=== PATIENT | male | born 1980 | race Caucasian/White ===

== ENCOUNTER 2017-09-10 23:50 | Emergency (ER) | payer OTHER ==
[~2017-09-10] VITALS: Ht 182.9 cm; Wt 99.5 kg
[2017-09-10 23:59] VITALS: BP 149/95; PULSE 69; RESP 18; TEMP 98.1; O2SAT 97
[2017-09-11] MEDS ORDERED: SODIUM CHLOR 0.9% 1000 ML INJ 1,000 ML IV SCH (00:05)
[2017-09-11 00:09] VITALS: BP 149/95; PULSE 69; RESP 18; TEMP 98.1; O2SAT 97
--- NOTE | 2017-09-11 00:11 | PD ---
HPI Chief Complaint: Left flank pain Time Seen by Provider: 00:05 Travel History International Travel<30 days: No Contact w/Intl Traveler<30days: No Traveled to known affect area: No History of Present Illness HPI 36-year-old male patient with history of kidney stones, presents to the ER for 3 days history of left flank pains with radiation to the left groin area. He has been nauseous but denies any vomiting, fevers, or other symptoms. He has noticed some dark urine. Symptoms have worsened over the last day. Pain is currently a 7 out of 10. Patient has been using [id number] pain medications without significant improvement. Modifying Factors: None Associated Signs & Symptoms: Left flank pain Risk Factors: History of kidney stones PFSH Past Medical History Diminished Hearing: No Immune Disorder: Yes (psoriasis) Kidney Stones: Yes (X2) Integumentary: Yes (PSOROSIS) Social History Alcohol Use: Yes (SOCIALLY) Tobacco Use: No Substance Use: No Allergies-Medications (Allergen,Severity, Reaction): Coded Allergies: No Known Allergies (Verified Adverse Reaction, Unknown, 09/11/17) Reported Meds & Prescriptions Reported Meds & Active Scripts Active Zofran Odt (Ondansetron Odt) 4 Mg Tab 4 Mg SL Q6HR PRN Percocet (Oxycodone-Acetaminophen) 5-325 mg Tab 1-2 Tab PO Q6H PRN Aleve Arthritis (Naproxen Sodium) 220 Mg Tab 220 Mg PO BID Review of Systems Except as stated in HPI: all other systems reviewed are Neg Physical Exam Narrative GENERAL: Well-developed young male patient currently in mild to moderate distress. Awake and oriented 3. SKIN: Focused skin assessment warm/dry. HEAD: Atraumatic. Normocephalic. EYES: Pupils equal and round. No scleral icterus. No injection or drainage. ENT: No nasal bleeding or discharge. Mucous membranes pink and moist. NECK: Trachea midline. No JVD. Supple. CARDIOVASCULAR: Regular rate and rhythm. No murmur appreciated. RESPIRATORY: No accessory muscle use. Clear to auscultation. Breath sounds equal bilaterally. GASTROINTESTINAL: Abdomen soft, non-tender, nondistended. Hepatic and splenic margins not palpable. MUSCULOSKELETAL: No obvious deformities. No clubbing. No cyanosis. No edema. BACK: Mild left CVA tenderness. No rash. No point tenderness on palpation of the spine. NEUROLOGICAL: Awake and alert. No obvious cranial nerve deficits. Motor grossly within normal limits. Normal speech. PSYCHIATRIC: Appropriate mood and affect; insight and judgment normal. Data Data Last Documented VS Vital Signs Date Time Temp Pulse Resp B/P (MAP) Pulse Ox O2 Delivery O2 Flow Rate FiO2 09/11/17 00:43 62 18 143/78 (99) 97 Room Air 09/11/17 00:09 98.1 Orders Orders Complete Blood Count With Diff (09/11/17 00:05) Comprehensive Metabolic Panel (09/11/17 00:05) Lipase (09/11/17 00:05) Urinalysis - C+S If Indicated (09/11/17 00:05) Ct Abd/Pel W/O Iv Contrast (09/11/17 00:05) Iv Access Insert/Monitor (09/11/17 00:05) Ecg Monitoring (09/11/17 00:05) Oximetry (09/11/17 00:05) Ondansetron Inj (Zofran Inj) (09/11/17 00:15) Sodium Chlor 0.9% 1000 Ml Inj (Ns 1000 M (09/11/17 00:05) Sodium Chloride 0.9% Flush (Ns Flush) (09/11/17 00:15) Ketorolac Inj (Toradol Inj) (09/11/17 00:15) Labs Laboratory Tests Test 09/11/17 00:30 White Blood Count 8.0 TH/MM3 Red Blood Count 4.76 MIL/MM3 Hemoglobin 13.6 GM/DL Hematocrit 40.4 % Mean Corpuscular Volume 84.8 FL Mean Corpuscular Hemoglobin 28.5 PG Mean Corpuscular Hemoglobin Concent 33.6 % Red Cell Distribution Width 12.0 % Platelet Count 165 TH/MM3 Mean Platelet Volume 8.5 FL Neutrophils (%) (Auto) 74.1 % Lymphocytes (%) (Auto) 14.2 % Monocytes (%) (Auto) 10.0 % Eosinophils (%) (Auto) 0.8 % Basophils (%) (Auto) 0.9 % Neutrophils # (Auto) 5.9 TH/MM3 Lymphocytes # (Auto) 1.1 TH/MM3 Monocytes # (Auto) 0.8 TH/MM3 Eosinophils # (Auto) 0.1 TH/MM3 Basophils # (Auto) 0.1 TH/MM3 CBC Comment DIFF FINAL Differential Comment Urine Color YELLOW Urine Turbidity CLEAR Urine pH 5.5 Urine Specific [place] 1.034 Urine Protein TRACE mg/dL Urine Glucose (UA) NEG mg/dL Urine Ketones NEG mg/dL Urine Occult Blood LARGE Urine Nitrite NEG Urine Bilirubin NEG Urine Leukocyte Esterase NEG Urine RBC 25-49 /hpf Urine WBC 0-2 /hpf Urine Squamous Epithelial Cells 0-5 /hpf Urine Bacteria NONE /hpf Microscopic Urinalysis Comment CULT NOT INDICATED Blood Urea Nitrogen 25 MG/DL Creatinine 1.50 MG/DL Random Glucose 113 MG/DL Total Protein 7.2 GM/DL Albumin 4.2 GM/DL Calcium Level 8.9 MG/DL Alkaline Phosphatase 84 U/L Aspartate Amino Transf (AST/SGOT) 22 U/L Alanine Aminotransferase (ALT/SGPT) 37 U/L Total Bilirubin 0.6 MG/DL Sodium Level 141 MEQ/L Potassium Level 3.7 MEQ/L Chloride Level 106 MEQ/L Carbon Dioxide Level 26.9 MEQ/L Anion Gap 8 MEQ/L Estimat Glomerular Filtration Rate 54 ML/MIN Lipase 135 U/L [facility] Medical Decision Making Medical Screen Exam Complete: Yes Emergency Medical Condition: Yes Medical Record Reviewed: Yes Interpretation(s) Laboratory Tests Test 09/11/17 00:30 Neutrophils (%) (Auto) 74.1 % (16.0-70.0) Monocytes (%) (Auto) 10.0 % (0.0-8.0) Urine Occult Blood LARGE (NEG) Urine RBC 25-49 /hpf (0-3) Blood Urea Nitrogen 25 MG/DL (7-18) Creatinine 1.50 MG/DL (0.60-1.30) Random Glucose 113 MG/DL (74-106) Estimat Glomerular Filtration Rate 54 ML/MIN (>89) Differential Diagnosis Left flank pains: Renal colic versus UTI/pyelonephritis versus musculoskeletal Narrative Course UA is notable for hematuria. His BUN and creatinine is mildly elevated. CAT scan is showing a 5 mm stone in the proximal left ureter. At this point, I have discussed findings with patient and patient had been given Toradol, IV fluids, Zofran in the ER. He is feeling improved On reevaluation an hour later. At this point, my plan would be to release the patient with follow-up to urology. Return for any worsening in pain or new symptoms as needed. He will be given further symptomatic relief or pain and nausea. The plan was discussed with patient and he states understanding. Diagnosis Primary Impression: Renal colic on left side Referrals: Kevin Galeana MD Med/Other Pt SpecificInfo: Prescription(s) given Scripts Ondansetron Odt (Zofran Odt) 4 Mg Tab 4 MG SL Q6HR Y for Nausea/Vomiting, #10 TAB 0 Refills Prov: Pratibha Spain MD 09/11/17 Oxycodone-Acetaminophen (Percocet) 5-325 mg Tab 1-2 TAB PO Q6H Y for PAIN, #15 TAB 0 Refills Prov: Pratibha Spain MD 09/11/17 Naproxen Sodium (Aleve Arthritis) 220 Mg Tab 220 MG PO BID, #20 TAB Prov: Pratibha Spain MD 09/11/17 Disposition: 01 DISCHARGE HOME Condition: Stable Pratibha Spain MD Sep 11, 2017 00:11
[2017-09-11] MEDS ORDERED: KETOROLAC TROMETHAMINE 30 MG/ML (IVP) VIAL IVP ONE (00:15)
[2017-09-11] MEDS ORDERED: SODIUM CHLORIDE 0.9% FLUSH 10 ML FLUSH IV FLUSH PRN (00:15)
[2017-09-11] MEDS ORDERED: ONDANSETRON HCL 4 MG/2 ML VIAL IVP ONE (00:15)
[2017-09-11 00:43] VITALS: BP 143/78; PULSE 62; RESP 18; O2SAT 97
[2017-09-11 00:45] LABS: BILIRUBIN, URINE NEG (NEG); BLOOD, URINE LARGE (NEG); GLUCOSE,URINE NEG (NEG); KETONE, URINE NEG (NEG); NITRITE,URINE NEG (NEG); PH, URINE 5.5 (5.0-8.5); URINE LEUKOCYTE ESTERASE NEG (NEG)
[2017-09-11 00:47] LABS: AUTOMATED NEUTROPHIL # 5.9 TH/MM3 (1.8-7.7); BASOPHIL # 0.1 TH/MM3 (0-0.2); BASOPHIL % 0.9 % (0.0-2.0); EOSINOPHIL # 0.1 TH/MM3 (0-0.4); EOSINOPHIL % 0.8 % (0.0-4.0); HEMATOCRIT 40.4 % (39.0-51.0); HEMOGLOBIN 13.6 GM/DL (13.0-17.0); LYMPH % 14.2 % (9.0-44.0); LYMPHOCYTE # 1.1 TH/MM3 (1.0-4.8); MEAN CELL VOLUME 84.8 FL (80.0-100.0); MEAN CORPUSCULAR HEMOGLOBIN 28.5 PG (27.0-34.0); MEAN CORPUSCULAR HGB CONC 33.6 % (32.0-36.0); MEAN PLATELET VOLUME 8.5 FL (7.0-11.0); MONOCYTE # 0.8 TH/MM3 (0-0.9); NEUT % 74.1 % (16.0-70.0); PLATELET COUNT 165 TH/MM3 (150-450); RED BLOOD COUNT 4.76 MIL/MM3 (4.50-5.90)
[2017-09-11 00:54] LABS: URINE COLOR YELLOW (YELLW/STRAW); WBC, URINE 0-2 /hpf (0-5)
--- NOTE | 2017-09-11 00:54 | RADRPT ---
EXAM DATE/TIME: 09/11/2017 00:13 [place] COMPARISON: No previous studies available for comparison. INDICATIONS : Left flank pain. ORAL CONTRAST: No oral contrast ingested. RADIATION DOSE: 22.68 CTDIvol (mGy) MEDICAL HISTORY : None SURGICAL HISTORY : None. ENCOUNTER: Initial ACUITY: 2 days PAIN SCALE: 7/10 LOCATION: Left flank TECHNIQUE: Volumetric scanning of the abdomen and pelvis was performed. Using automated exposure control and ad justment of the mA and/or kV according to patient size, radiation dose was kept as low as reasonably achievable to obtain optimal diagnostic quality images. DICOM format image data is available electro nically for review and comparison. FINDINGS: LOWER LUNGS: The visualized lower lungs are clear. LIVER: Homogeneous density without lesion. There is no dilation of the biliary tree. No calcified gallston es. SPLEEN: Normal size without lesion. PANCREAS: Within normal limits. KIDNEYS: 5 mm calcified calculus in the proximal left ureter with associated mild left-sided hydronephrosis. T here are 3 additional 2-4 mm calyceal calculi on the left. The there is a 7 mm calcified calyceal gwen culus in the right inferior pole. Right kidney is otherwise unremarkable. ADRENAL GLANDS: Within normal limits. VASCULAR: There is no aortic aneurysm. BOWEL/MESENTERY: The stomach, small bowel, and colon demonstrate no acute abnormality. There is no free intraperitone al air or fluid. ABDOMINAL WALL: Within normal limits. RETROPERITONEUM: There is no lymphadenopathy. BLADDER: No wall thickening or mass. Pelvic calcifications are likely phleboliths. REPRODUCTIVE: Within normal limits. INGUINAL: There is no lymphadenopathy or hernia. MUSCULOSKELETAL: Within normal limits for patient age. CONCLUSION: 1. 5 mm proximal left ureteral calculus with mild left-sided hydronephrosis. 2. Three additional to 4 mm left calyceal calculi 3. Single nonobstructing 7 mm calcified calculus in the right inferior pole. Yosvany Sorto MD on September 11, 2017 at 0:50 Board Certified Radiologist. This report was verified electronically.
[2017-09-11 00:55] LABS: SQUAMOUS EPITHELIAL CELL URINE 0-5 /hpf (0-5)
[2017-09-11 01:00] LABS: CHLORIDE 106 MEQ/L (98-107); SODIUM (NA) 141 MEQ/L (136-145)
[2017-09-11 01:03] LABS: CALCIUM 8.9 MG/DL (8.5-10.1)
[2017-09-11] MEDS ORDERED: ALEV220T14 PO (01:03)
[2017-09-11] MEDS ORDERED: PERC5TAB12 PO (01:03)
[2017-09-11 01:04] LABS: ALBUMIN 4.2 GM/DL (3.4-5.0); BICARBONATE 26.9 MEQ/L (21.0-32.0); BLOOD UREA NITROGEN 25 MG/DL (7-18); GLUCOSE,RANDOM 113 MG/DL (74-106)
[2017-09-11] MEDS ORDERED: ZOFR4TAB3 SL (01:04)
[2017-09-11 01:06] LABS: ALT (GPT) 37 U/L (12-78)
[2017-09-11 01:07] LABS: AST (GOT) 22 U/L (15-37); GLOMERULAR FILTRATION RATE 54 ML/MIN (>89)
[2017-09-11 01:08] LABS: TOTAL BILIRUBIN ADULT 0.6 MG/DL (0.2-1.0); TOTAL PROTEIN 7.2 GM/DL (6.4-8.2)
[2017-09-11 01:09] LABS: ALKALINE PHOSPHATASE 84 U/L (45-117)
[2017-09-11 01:16] VITALS: BP 125/67
[2017-09-11 01:24] VITALS: RESP 18
== END 2017-09-11 01:30 | disposition home or self-care (01) ==
LOC: PHED 23:50
DX: N13.30 Unspecified hydronephrosis (principal); N20.2 Calculus of kidney with calculus of ureter; N23 Unspecified renal colic; R31.9 Hematuria, unspecified; Z87.442 Personal history of urinary calculi
CPT/HCPCS: 74176; 80053; 81001; 83690; 85025; 96361; 96374; 96375; 99284; J1885; J2405; J7030